=== PATIENT | female | born 1950 | race Caucasian/White ===

== ENCOUNTER 2022-11-03 17:31 | Emergency (ER) | payer MEDICARE ==
[2022-11-03 17:55] LABS: #Basophils 0.2 thou/uL (0.0-0.2); #Eosinphils 0.2 thou/uL (0.0-0.7); #Lymphocytes 3.8 thou/uL (1.20-3.40); #Monocytes 0.9 thou/uL (0.11-0.59); #Neutrophils 5.6 thou/uL (1.40-6.50); %Basophils 1.8 % (0.0-1.0); %Eosinophils 2.1 % (0.0-10.0); %Monocytes 8.5 % (0.0-10.0); %Neutrophils 52.7 % (42.0-75.0); Hemoglobin 13.7 g/dL (12.0-16.0); Mean Corpuscular HGB CONC 35.8 g/dL (32.0-36.0); Mean Corpuscular Hemoglobin 32.7 pg (27.0-31.0); Mean Corpuscular Volume 91.1 fl (78.0-98.0); Mean Platelet Volume 6.4 fL (7.4-10.4); Platelet Count 265 10x3/uL (130-400); RBC Distribution Width 11.1 % (11.5-14.5); Red Blood Cell (RBC) Count 4.18 mill/uL (4.20-5.40); White Blood Cell (WBC) Count 10.7 10x3/uL (4.8-10.8)
[2022-11-03] MEDS ORDERED: Ondansetron PF 4 MG/2 ML Vial ONE (17:59)
[2022-11-03] MEDS ORDERED: Sodium Chloride 0.9% 1,000 ML ONE (17:59)
[2022-11-03 18:32] LABS: ALT (SGPT) 23 U/L (8-55); AST (SGOT) 20 U/L (5-34); Albumin 4.2 g/dL (3.4-4.8); Alkaline Phosphatase 60 U/L (40-110); Anion Gap 12 mmol/L (10-20); BUN (Urea Nitrogen) 20 mg/dL (9.8-20.1); Bilirubin, Total 0.8 mg/dL (0.2-1.2); Calc. Creatinine Clearance 0 mL/min (70-130); Calcium 9.6 mg/dL (7.8-10.44); Carbon Dioxide 26 mmol/L (23-31); Chloride 96 mmol/L (98-107); Estimated GFR 70; Globulin 2.7 g/dL (2.4-3.5); Glucose 157 mg/dL (83-110); Lipase 50 U/L (8-78); Magnesium 1.7 mg/dL (1.6-2.6); Potassium 3.9 mmol/L (3.5-5.1); Protein, Total 6.9 g/dL (5.8-8.1); Sodium 130 mmol/L (136-145)
[2022-11-03 18:45] LABS: Bilirubin Negative (Negative); Blood, Urine Trace (Negative); Glucose, Urine (Dipstick) Negative (Negative); Ketone, Urine Negative (Negative); Leukocyte Small (Negative); Nitrite Negative (Negative); Protein, Urine (Dipstick) Negative (Neg-Trace); Urobilinogen 0.2 mg/dL (Less than 2); pH, Urine 6.5 (5.0-9.0)
[2022-11-03 18:46] LABS: Clarity Hazy (Clear)
[2022-11-03 18:55] LABS: Bacteria/HPF 4+ HPF (None Seen); RBC/HPF 0-3 HPF (0-3); Squamous Epithelial 0-3 HPF (0-3); WBC/HPF 21-50 HPF (0-3)
[2022-11-03] MEDS ORDERED: Promethazine 25 MG TAB ONE (19:01)
[2022-11-03] MEDS ORDERED: Ketorolac Tromethamine 30 MG/ML VIAL ONE (19:01)
== END 2022-11-03 19:18 | disposition home or self-care (01) ==
LOC: MADERS 17:31
DX: G43.909 Migraine, unspecified, not intractable, without status migrainosus (principal); R11.0 Nausea; E03.9 Hypothyroidism, unspecified; I10 Essential (primary) hypertension; E11.9 Type 2 diabetes mellitus without complications
CPT/HCPCS: 70450; 80053; 81003; 81015; 83690; 83735; 84484; 85025; 93005; 96374; 96375; J1885; J2405; J7050; Q0169

== ENCOUNTER 2025-04-09 12:36 | Inpatient (IN) | payer MEDICARE ==
[2025-04-09 13:11] VITALS: BMI 33.0
[2025-04-09] MEDS ORDERED: cefTRIAXone (ROCEPHIN) 2 GM VIAL IVPB SCH (15:30)
[2025-04-09] MEDS: cefTRIAXone\\ROCEPHIN 2 GM in Sodium Chloride 0.9% 100 ML IVPB SCH ×2 (16:11→20:35)
[2025-04-09] MEDS: metFORMIN 500 MG TAB PO SCH (20:35)
[2025-04-10 06:46] VITALS: BMI 33.0
[2025-04-10] MEDS: Pantoprazole 40 MG DR.TAB PO SCH (08:20)
[2025-04-10] MEDS: Multivitamin W/ Minerals 1 TAB PO SCH (08:20)
[2025-04-10] MEDS: Citalopram 20 MG TAB PO SCH (08:21)
[2025-04-10] MEDS: Losartan 50 MG TAB PO SCH (08:21)
[2025-04-10] MEDS: Acetaminophen 325 MG TAB PO PRN (08:24)
[2025-04-12] MEDS: Calcium Carbonate 500 MG ChewTAB PO PRN (11:20)
[2025-04-13 05:51] LABS: ALT (SGPT) 33 U/L (Less than 34); AST (SGOT) 22 U/L (11-34); Albumin 3.5 g/dL (3.1-4.5); Alkaline Phosphatase 109 U/L (40-110); Anion Gap 18 mmol/L (10-20); BUN (Urea Nitrogen) 18 mg/dL (9.8-20.1); Bilirubin, Total 0.5 mg/dL (0.3-1.2); CK (CPK) 53 U/L (29-168); Calc. Creatinine Clearance 96 mL/min (70-130); Calcium 9.5 mg/dL (7.8-10.44); Carbon Dioxide 20 mmol/L (23-31); Chloride 101 mmol/L (98-107); Globulin 3.6 g/dL (2.4-3.5); Glucose 115 mg/dL (83-110); Potassium 4.1 mmol/L (3.5-5.1); Sodium 135 mmol/L (136-145)
[2025-04-14 07:01] VITALS: BP 108/65; TEMP 98.4
== END 2025-04-14 08:58 | disposition home or self-care (01) | DRG 945 ==
LOC: MADMS 12:36
PROVIDERS: ADMIT Family Medicine; ATTEND Family Medicine
PROC: F08Z0ZZ Bathing/Showering Techniques Treatment (ICD-10-PCS; principal; 2025-04-09)
PROC: F07Z5ZZ Bed Mobility Treatment (ICD-10-PCS; 2025-04-09)
PROC: 3E03329 Introduction of Other Anti-infective into Peripheral Vein, Percutaneous Approach (ICD-10-PCS; 2025-04-09)
DX: R53.81 Other malaise (principal); A41.51 Sepsis due to Escherichia coli [E. coli]; I50.32 Chronic diastolic (congestive) heart failure; N39.0 Urinary tract infection, site not specified; M62.82 Rhabdomyolysis; I10 Essential (primary) hypertension; E78.5 Hyperlipidemia, unspecified; E03.9 Hypothyroidism, unspecified; Z98.890 Other specified postprocedural states; R74.01 Elevation of levels of liver transaminase levels; E11.9 Type 2 diabetes mellitus without complications; R26.89 Other abnormalities of gait and mobility; Z79.899 Other long term (current) drug therapy; Z79.890 Hormone replacement therapy
CPT/HCPCS: 36415; 36416; 80053; 82550; J0696